=== PATIENT | male | born 1970 | race Two or more races ===

== ENCOUNTER 2021-07-10 10:55 | Inpatient (IN) | payer MEDICAID, OTHER ==
[~2021-07-10] VITALS: Ht 157.5 cm; Wt 88.0 kg
[2021-07-10] MEDS ORDERED: SODIUM CHLORIDE 0.9% 1,000 ML IVB ONE (12:45)
[2021-07-10] MEDS ORDERED: SODIUM CHLORIDE 0.9% 1,000 ML IV ONE (12:45)
[2021-07-10] MEDS ORDERED: cefTRIAXone 1GM/50ML D5W 50 ML IV ONE (12:45)
[2021-07-10] MEDS ORDERED: ASPirin 81 mg TAB PO ONE (12:45)
[2021-07-10] MEDS ORDERED: ZINC SULFATE 220mg CAP or TAB PO ONE (12:45)
[2021-07-10] MEDS ORDERED: ASCORBIC ACID 500 MG TAB PO ONE (12:45)
[2021-07-10] MEDS ORDERED: CHOLECALCIFEROL (VITD3) 2,000 UNIT CAP/TAB PO ONE (12:45)
[2021-07-10] MEDS ORDERED: DexAMETHasone SOD PHOS 10MG/1ML VIAL INJ IV ONE (12:45)
[2021-07-10] MEDS ORDERED: AZITHROMYCIN 500MG/ 250ML 250 ML IV ONE (12:45)
[2021-07-10 14:08] LABS: Urine WBC None Seen /hpf (0 - 3)
[2021-07-10 14:31] LABS: Urine Bacteria NONE SEEN /hpf (None Seen); Urine Blood Negative /uL (Negative); Urine Mucus FEW (None Seen); Urine Specific Gravity 1.016 (1.001-1.035)
[2021-07-10 14:47] LABS: Basophils # (auto) 0.1 10 ^3/uL (0-0.2); Basophils % (auto) 1.1 % (0.0-2.0); Eosinophils # (auto) 0 10 ^3/uL (0-0.8); Eosinophils % (auto) 0.9 % (0.0-7.0); Hematocrit 46.5 % (41.0-53.0); Hemoglobin 15.4 g/dL (13.5-17.5); Lymphocytes % (auto) 20.1 % (10.0-50.0); Mean Corpuscular Hemoglobin 28.6 pg (28.0-32.0); Mean Corpuscular Hgb Conc. 33.2 g/dL (32.0-36.0); Monocytes # (auto) 0.4 10 ^3/uL (0-1.3); Monocytes % (auto) 8.7 % (0.0-12.0); Neutrophils # (auto) 3.5 10 ^3/uL (1.6-8.6); Neutrophils % (auto) 69.2 % (37.0-80.0); Nucleated Red Blood Cells % 0.2 %; Red Blood Cells 5.41 10^6/uL (4.5-5.90); Red Cell Distribution Width 14.7 % (11.8-14.3); White Blood Cell 5.1 10^3/uL (4.4-10.8)
[2021-07-10 14:54] LABS: Potassium 4.7 mmol/L (3.5-5.1)
[2021-07-10 14:57] LABS: INR 1.02 (0.9-1.15); Partial Thromboplastin Time 27.2 sec (23.6-33.0)
[2021-07-10 14:59] LABS: Albumin 2.7 g/dL (3.4-5.0); BUN/Creatinine Ratio 16.9; Calcium 8.1 mg/dL (8.5-10.1)
[2021-07-10 15:04] LABS: Bilirubin, Total 0.5 mg/dL (0.2-1.0)
[2021-07-10] MEDS ORDERED: NITROGLYCERIN 0.4 MG SL TAB SL PRN ×2 (19:00→19:30)
[2021-07-10] MEDS ORDERED: MORPHINE SULFATE INJECTION 2 MG/ML SYRG IV PRN ×3 (19:00→19:30)
[2021-07-10] MEDS ORDERED: REMDESIVIR PER PHARMACY 0 ML IV SCH (19:15)
[2021-07-10] MEDS ORDERED: ACETAMINOPHEN 500 MG TAB PO PRN (19:15)
[2021-07-10] MEDS: ALBUMIN 25% 100 ML IV SCH (19:15)
[2021-07-10] MEDS ORDERED: ALBUMIN 25% 100 ML IV ONE (19:15)
[2021-07-10] MEDS ORDERED: FAMOTIDINE (10MG/ML) 2ML VL IV ONE (19:15)
[2021-07-10 19:23] VITALS: BP 122/80
[2021-07-10] MEDS ORDERED: DOCUSATE SOD 100 MG CAP PO PRN (19:30)
[2021-07-10] MEDS ORDERED: HYDROcodone-ACET 5/325MG TAB PO PRN (19:30)
[2021-07-10] MEDS ORDERED: ALUM & MAG HYDROX-SIMETH LIQ(MAALOX) 30 ML PO PRN (19:30)
[2021-07-10] MEDS ORDERED: ONDANSETRON HCL 4 MG/2 ML VIAL IV PRN (19:30)
[2021-07-10] MEDS ORDERED: LORazepam 0.5 MG TAB PO PRN (19:30)
[2021-07-10] MEDS: BUDESONIDE (INHALATION) 180 MCG IH IN SCH (19:57)
[2021-07-10] MEDS: ALBUTEROL SULF HFA 90MCG INH 200DOSE IN PRN (19:58)
[2021-07-10 20:53] LABS: Alcohol, Urine < 3.0 mg/dL (0-10); Amphetamine Screen, Urine NEGATIVE (NEGATIVE); Barbiturate Scree,Urine NEGATIVE (NEGATIVE); Benzodiazephine Screen, Urine NEGATIVE (NEGATIVE); Cannabinoid Screen, Urine NEGATIVE (NEGATIVE); Cocaine Screen, Urine NEGATIVE (NEGATIVE); Opiate Scree,Urine NEGATIVE (NEGATIVE); Phencyclidine Screen, Urine NEGATIVE (NEGATIVE)
[2021-07-10 21:15] LABS: Albumin 2.8 g/dL (3.4-5.0); Calcium 8.3 mg/dL (8.5-10.1); Magnesium 2.7 mg/dL (1.6-2.6); Potassium 4.4 mmol/L (3.5-5.1)
[2021-07-10 21:18] LABS: BUN/Creatinine Ratio 13.1; Bilirubin, Total 0.5 mg/dL (0.2-1.0); CRP High Sensitivity 0.58 mg/dL (< 0.3); Total Protein 7.3 g/dL (6.4-8.2)
[2021-07-10 21:23] LABS: Cholesterol 146 mg/dL (< 200); Triglycerides 111 mg/dL (< 150)
[2021-07-10 21:26] LABS: HDL Cholesterol 38 mg/dL (40-59); LDL Cholesterol 92 mg/dL (< 100)
[2021-07-10] MEDS: SODIUM CHLOR 0.9% PF (SALINE LOCK) 10ML VIAL/SYR IV SCH (21:53)
[2021-07-10] MEDS: ATORVASTATIN 20 MG TAB PO SCH (21:54)
[2021-07-10] MEDS: DOXYCYCLINE 100 MG TAB/CAP PO SCH (21:54)
[2021-07-10] MEDS: ENOXAPARIN SOD 40 MG/0.4 ML SYRINGE SC SCH (21:54)
[2021-07-10] MEDS ORDERED: REMDESIVIR 200 MG in NS 210ml LOADING DOSE ADULT IV ONE (22:00)
[2021-07-10 22:18] LABS: Thyroid Stimulating Hormone 0.21 uIU/mL (0.358-3.74)
[2021-07-11] MEDS: ALBUMIN 25% 100 ML IV SCH ×2 (04:53→12:10)
[2021-07-11 04:56] VITALS: BP 114/83
[2021-07-11 05:17] VITALS: BP 110/80
[2021-07-11] MEDS: FUROSEMIDE 20 MG/2 ML VIAL IV SCH ×2 (06:30→18:06)
[2021-07-11] MEDS: SODIUM CHLOR 0.9% PF (SALINE LOCK) 10ML VIAL/SYR IV SCH ×3 (06:30→21:42)
[2021-07-11] MEDS: BUDESONIDE (INHALATION) 180 MCG IH IN SCH ×2 (07:15→19:50)
[2021-07-11] MEDS: ALBUTEROL SULF HFA 90MCG INH 200DOSE IN PRN ×2 (07:15→23:05)
[2021-07-11 07:33] LABS: Basophils # (auto) 0 10 ^3/uL (0-0.2); Basophils % (auto) 0.8 % (0.0-2.0); Eosinophils # (auto) 0 10 ^3/uL (0-0.8); Eosinophils % (auto) 0.1 % (0.0-7.0); Hematocrit 44.9 % (41.0-53.0); Lymphocytes # (auto) 1.5 10 ^3/uL (0.4-5.4); Lymphocytes % (auto) 23.3 % (10.0-50.0); Mean Corpuscular Hemoglobin 28.5 pg (28.0-32.0); Mean Corpuscular Hgb Conc. 33.4 g/dL (32.0-36.0); Mean Corpuscular Volume 85.4 fL (80.0-100.0); Monocytes # (auto) 0.5 10 ^3/uL (0-1.3); Monocytes % (auto) 7.5 % (0.0-12.0); Neutrophils # (auto) 4.4 10 ^3/uL (1.6-8.6); Neutrophils % (auto) 68.3 % (37.0-80.0); Red Blood Cells 5.26 10^6/uL (4.5-5.90); Red Cell Distribution Width 14.6 % (11.8-14.3); White Blood Cell 6.5 10^3/uL (4.4-10.8)
[2021-07-11 07:50] LABS: INR 1.02 (0.9-1.15); Partial Thromboplastin Time 27.2 sec (23.6-33.0)
[2021-07-11 07:54] LABS: Albumin 3.7 g/dL (3.4-5.0); Calcium 8.7 mg/dL (8.5-10.1); Magnesium 3.1 mg/dL (1.6-2.6); Potassium 4.1 mmol/L (3.5-5.1)
[2021-07-11 08:02] LABS: Bilirubin, Total 0.5 mg/dL (0.2-1.0); Phosphorus 4.5 mg/dL (2.5-4.90); Total Protein 7.2 g/dL (6.4-8.2)
[2021-07-11 09:00] VITALS: BP 120/67
[2021-07-11] MEDS: FAMOTIDINE (10MG/ML) 2ML VL IV SCH ×2 (09:39→21:42)
[2021-07-11] MEDS: ZINC SULFATE 220mg CAP or TAB PO SCH (09:39)
[2021-07-11] MEDS: ASPirin 81 mg TAB PO SCH (09:39)
[2021-07-11] MEDS: DexAMETHasone SOD PHOS 10MG/1ML VIAL INJ IV SCH (09:39)
[2021-07-11] MEDS: IVERMECTIN 3 MG TAB PO SCH (09:40)
[2021-07-11] MEDS: DOXYCYCLINE 100 MG TAB/CAP PO SCH ×2 (09:40→21:43)
[2021-07-11] MEDS: ENOXAPARIN SOD 40 MG/0.4 ML SYRINGE SC SCH ×2 (09:41→21:44)
[2021-07-11] MEDS: CHOLECALCIFEROL (VITD3) 2,000 UNIT CAP/TAB PO SCH (09:41)
[2021-07-11] MEDS: ASCORBIC ACID 1,000 MG TAB PO SCH (09:41)
[2021-07-11 13:00] VITALS: BP 111/66
[2021-07-11] MEDS: REMDESIVIR 100mg 100 MG in SODIUM CHL 0.9% 230 ML IV SCH (15:36)
[2021-07-11 16:56] VITALS: BP 101/68
[2021-07-11] MEDS: POTASSIUM CHL 20 Meq TABLET PO SCH (21:43)
[2021-07-11] MEDS: ATORVASTATIN 20 MG TAB PO SCH (21:43)
[2021-07-11 22:07] VITALS: BP 116/64
[2021-07-12 06:07] VITALS: BP 94/63
[2021-07-12] MEDS: FUROSEMIDE 20 MG/2 ML VIAL IV SCH ×2 (06:22→18:29)
[2021-07-12] MEDS: SODIUM CHLOR 0.9% PF (SALINE LOCK) 10ML VIAL/SYR IV SCH ×3 (06:22→21:21)
[2021-07-12 06:57] LABS: Calcium 9.2 mg/dL (8.5-10.1); Potassium 4.5 mmol/L (3.5-5.1)
[2021-07-12 07:26] LABS: Albumin 3.7 g/dL (3.4-5.0); BUN/Creatinine Ratio 18.9; Bilirubin, Total 0.8 mg/dL (0.2-1.0); Total Protein 6.9 g/dL (6.4-8.2)
[2021-07-12 08:42] VITALS: BP 99/63
[2021-07-12] MEDS: BUDESONIDE (INHALATION) 180 MCG IH IN SCH ×2 (09:50→19:15)
[2021-07-12] MEDS: ALBUTEROL SULF HFA 90MCG INH 200DOSE IN PRN ×2 (09:51→20:59)
[2021-07-12] MEDS: POTASSIUM CHL 20 Meq TABLET PO SCH ×2 (12:32→21:21)
[2021-07-12] MEDS: DOXYCYCLINE 100 MG TAB/CAP PO SCH ×2 (12:32→21:22)
[2021-07-12] MEDS: IVERMECTIN 3 MG TAB PO SCH (12:32)
[2021-07-12] MEDS: CHOLECALCIFEROL (VITD3) 2,000 UNIT CAP/TAB PO SCH (12:32)
[2021-07-12] MEDS: ASPirin 81 mg TAB PO SCH (12:33)
[2021-07-12] MEDS: DexAMETHasone SOD PHOS 10MG/1ML VIAL INJ IV SCH (12:33)
[2021-07-12] MEDS: ENOXAPARIN SOD 40 MG/0.4 ML SYRINGE SC SCH ×2 (12:33→21:24)
[2021-07-12] MEDS: FAMOTIDINE (10MG/ML) 2ML VL IV SCH ×2 (12:33→21:21)
[2021-07-12] MEDS: ZINC SULFATE 220mg CAP or TAB PO SCH (12:33)
[2021-07-12] MEDS: ASCORBIC ACID 1,000 MG TAB PO SCH (12:33)
[2021-07-12 13:00] VITALS: BP 105/69
[2021-07-12] MEDS: REMDESIVIR 100mg 100 MG in SODIUM CHL 0.9% 230 ML IV SCH (15:03)
[2021-07-12 16:46] VITALS: BP 100/66
[2021-07-12] MEDS: ATORVASTATIN 20 MG TAB PO SCH (21:22)
[2021-07-12 22:00] VITALS: BP 107/67
[2021-07-13 05:00] VITALS: BP 101/64
[2021-07-13] MEDS: FUROSEMIDE 20 MG/2 ML VIAL IV SCH (05:48)
[2021-07-13] MEDS: SODIUM CHLOR 0.9% PF (SALINE LOCK) 10ML VIAL/SYR IV SCH ×3 (05:48→21:01)
[2021-07-13 06:53] LABS: Albumin 3.8 g/dL (3.4-5.0); Calcium 9.3 mg/dL (8.5-10.1); Potassium 4.4 mmol/L (3.5-5.1)
[2021-07-13 06:58] LABS: BUN/Creatinine Ratio 23.6; Bilirubin, Total 0.7 mg/dL (0.2-1.0); Total Protein 7.4 g/dL (6.4-8.2)
[2021-07-13 09:13] VITALS: BP 103/66
[2021-07-13] MEDS: DexAMETHasone SOD PHOS 10MG/1ML VIAL INJ IV SCH (09:13)
[2021-07-13] MEDS: ASCORBIC ACID 1,000 MG TAB PO SCH (09:13)
[2021-07-13] MEDS: FAMOTIDINE (10MG/ML) 2ML VL IV SCH ×2 (09:13→21:01)
[2021-07-13] MEDS: CHOLECALCIFEROL (VITD3) 2,000 UNIT CAP/TAB PO SCH (09:13)
[2021-07-13] MEDS: POTASSIUM CHL 20 Meq TABLET PO SCH ×2 (09:14→21:01)
[2021-07-13] MEDS: IVERMECTIN 3 MG TAB PO SCH (09:14)
[2021-07-13] MEDS: ENOXAPARIN SOD 40 MG/0.4 ML SYRINGE SC SCH ×2 (09:14→21:02)
[2021-07-13] MEDS: ZINC SULFATE 220mg CAP or TAB PO SCH (09:14)
[2021-07-13] MEDS: ASPirin 81 mg TAB PO SCH (09:14)
[2021-07-13 13:00] VITALS: BP 101/67
[2021-07-13] MEDS: BUDESONIDE (INHALATION) 180 MCG IH IN SCH ×2 (14:57→21:55)
[2021-07-13] MEDS: ALBUTEROL SULF HFA 90MCG INH 200DOSE IN PRN ×2 (14:58→21:55)
[2021-07-13] MEDS: REMDESIVIR 100mg 100 MG in SODIUM CHL 0.9% 230 ML IV SCH (15:45)
[2021-07-13 17:00] VITALS: BP 112/69
[2021-07-13] MEDS: DOXYCYCLINE 100 MG TAB/CAP PO SCH ×2 (18:17→21:02)
[2021-07-13] MEDS: ATORVASTATIN 20 MG TAB PO SCH (21:01)
[2021-07-13 22:00] VITALS: BP 103/57
[2021-07-14 00:41] VITALS: BP 103/57
[2021-07-14 05:00] VITALS: BP 101/59
[2021-07-14] MEDS: SODIUM CHLOR 0.9% PF (SALINE LOCK) 10ML VIAL/SYR IV SCH ×2 (05:52→12:53)
[2021-07-14 06:38] LABS: Basophils # (auto) 0.1 10 ^3/uL (0-0.2); Basophils % (auto) 0.8 % (0.0-2.0); Eosinophils # (auto) 0.1 10 ^3/uL (0-0.8); Eosinophils % (auto) 0.8 % (0.0-7.0); Hematocrit 47.8 % (41.0-53.0); Lymphocytes # (auto) 2.3 10 ^3/uL (0.4-5.4); Lymphocytes % (auto) 28.5 % (10.0-50.0); Mean Corpuscular Hemoglobin 29.2 pg (28.0-32.0); Mean Corpuscular Hgb Conc. 33.5 g/dL (32.0-36.0); Mean Corpuscular Volume 87.2 fL (80.0-100.0); Monocytes # (auto) 0.8 10 ^3/uL (0-1.3); Monocytes % (auto) 10.1 % (0.0-12.0); Neutrophils # (auto) 4.7 10 ^3/uL (1.6-8.6); Neutrophils % (auto) 59.8 % (37.0-80.0); Nucleated Red Blood Cells % 0.1 %; Red Blood Cells 5.48 10^6/uL (4.5-5.90); Red Cell Distribution Width 14.7 % (11.8-14.3); White Blood Cell 7.9 10^3/uL (4.4-10.8)
[2021-07-14 06:39] LABS: Potassium 4.6 mmol/L (3.5-5.1)
[2021-07-14 06:43] LABS: Albumin 3.5 g/dL (3.4-5.0); Calcium 9.4 mg/dL (8.5-10.1)
[2021-07-14] MEDS: BUDESONIDE (INHALATION) 180 MCG IH IN SCH (06:47)
[2021-07-14] MEDS: ALBUTEROL SULF HFA 90MCG INH 200DOSE IN PRN (06:48)
[2021-07-14 06:54] LABS: Bilirubin, Total 0.9 mg/dL (0.2-1.0); Total Protein 6.9 g/dL (6.4-8.2)
[2021-07-14 09:00] VITALS: BP 111/72
[2021-07-14] MEDS: ASPirin 81 mg TAB PO SCH (09:58)
[2021-07-14] MEDS: DexAMETHasone SOD PHOS 10MG/1ML VIAL INJ IV SCH (09:58)
[2021-07-14] MEDS: FAMOTIDINE (10MG/ML) 2ML VL IV SCH (09:58)
[2021-07-14] MEDS: POTASSIUM CHL 20 Meq TABLET PO SCH (09:59)
[2021-07-14] MEDS: ZINC SULFATE 220mg CAP or TAB PO SCH (09:59)
[2021-07-14] MEDS: DOXYCYCLINE 100 MG TAB/CAP PO SCH (09:59)
[2021-07-14] MEDS: IVERMECTIN 3 MG TAB PO SCH (09:59)
[2021-07-14] MEDS ORDERED: FUROSEMIDE 20 MG/2 ML VIAL IV SCH (10:00)
[2021-07-14] MEDS: ASCORBIC ACID 1,000 MG TAB PO SCH (10:00)
[2021-07-14] MEDS: ENOXAPARIN SOD 40 MG/0.4 ML SYRINGE SC SCH (10:06)
[2021-07-14] MEDS: CHOLECALCIFEROL (VITD3) 2,000 UNIT CAP/TAB PO SCH (10:06)
[2021-07-14 13:00] VITALS: BP 108/62
[2021-07-14] MEDS: REMDESIVIR 100mg 100 MG in SODIUM CHL 0.9% 230 ML IV SCH (16:30)
[2021-07-14 17:00] VITALS: BP 122/71
== END 2021-07-14 18:38 | disposition home or self-care (01) | DRG 137 ==
LOC: ER 10:55 → TELE 18:56 → TELE-E-ADS 07-11 02:33
PROVIDERS: ADMIT Hospitalist; ATTEND Internal Medicine
PROC: XW033E5 Introduction of Remdesivir Anti-infective into Peripheral Vein, Percutaneous Approach, New Technology Group 5 (ICD-10-PCS; principal; 2021-07-10)
DX: U07.1 COVID-19 (principal); J96.01 Acute respiratory failure with hypoxia; J12.82 Pneumonia due to coronavirus disease 2019; E44.0 Moderate protein-calorie malnutrition; D89.839 Cytokine release syndrome, grade unspecified; E66.9 Obesity, unspecified; E78.5 Hyperlipidemia, unspecified; Z68.35 Body mass index [BMI] 35.0-35.9, adult
CPT/HCPCS: 36415; 36600; 71045; 80053; 80061; 80307; 81001; 82306; 82728; 82805; 83036; 83605; 83615; 83735; 83880; 84100; 84439; 84443; 84484; 85025; 85379; 85610; 85730; 86141; 87040; 87086; 87426; 93005; 93306; 94640; 96365; 96375; G0378; J0696; J1100; J3490; P9047